=== PATIENT | female | born 1940 | race Caucasian/White ===

== ENCOUNTER → 2016-07-22 | Outpatient (CLI) | payer BC ==
[2016-07-22 12:10] LABS: BASO % 0.5 %; BASO ABS # 0.03 K/uL (0-0.2); COMPLETE YES; EOS % 3.9 %; HEMATOCRIT 43.6 % (37-47); IG% 0.2 %; LYMPH % 41.4 %; LYMPH ABS # 2.31 K/uL (1.2-3.4); MEAN CORPUSCULAR HEMOGLOBIN 31.6 pg (25-34); MEAN CORPUSCULAR HGB CONC 33.3 g/dl (32-36); MEAN PLATELET VOLUME 10.6 fL (7.4-10.4); MONO % 9.3 %; NEUT % 44.7 %; PLATELET COUNT 259 K/uL (130-400); RED BLOOD COUNT 4.59 M/uL (4.2-5.4); WHITE BLOOD COUNT 5.58 K/uL (4.8-10.8)
[2016-07-22 12:24] LABS: BLOOD UREA NITROGEN 18 mg/dl (7-18); BUN/CREATININE RATIO 18.2 (10-20); CARBON DIOXIDE 28 mmol/L (21-32); CHLORIDE 106 mmol/L (98-107); CHOLESTEROL 224 mg/dl (0-200); GLUCOSE 99 mg/dl (70-99); POTASSIUM 4.2 mmol/L (3.5-5.1); SODIUM 140 mmol/L (136-145); TRIGLYCERIDES 76 mg/dl (0-150); VERY LOW DENSITY LIPOPROT CALC 15 mg/dl
[2016-07-22 12:30] LABS: CALCIUM 9.5 mg/dl (8.5-10.1)
[2016-07-22 12:40] LABS: CHOLESTEROL/HDL RATIO 3.9; HDL CHOLESTEROL 58 mg/dl; LDL CHOLESTEROL CALCULATED 151 mg/dl
[2016-07-22 13:10] LABS: ESTIMATED AVERAGE GLUCOSE 117 mg/dl; HA1C FLAG Normal (Normal)
== END | disposition home or self-care (01) ==
LOC: C.LABPVFM 07:49
PROVIDERS: ATTEND Internal Medicine
DX: Z00.00 Encounter for general adult medical examination without abnormal findings (principal); N18.3 Chronic kidney disease, stage 3 (moderate); R73.9 Hyperglycemia, unspecified; E78.00 Pure hypercholesterolemia, unspecified

== ENCOUNTER → 2016-09-01 | Outpatient (CLI) | payer BC | END | disposition home or self-care (01) | LOC: C.LAB1850 13:20 | PROVIDERS: ATTEND Internal Medicine | DX: E78.00 Pure hypercholesterolemia, unspecified (principal) ==